=== PATIENT | female | born 1930 | race Caucasian/White ===

== ENCOUNTER 2019-08-03 09:50 | Emergency (ER) | payer BC, OTHER ==
[~2019-08-03] VITALS: Ht 157.5 cm; Wt 57.2 kg
[2019-08-03 10:03] VITALS: BP_SYST 163
--- NOTE | 2019-08-03 10:05 | NUR ---
Patient to ER bed 7 to gown for evaluation. Side rails up.
--- NOTE | 2019-08-03 10:06 | NUR ---
Mushtaq presented to ER with forehead laceration S/P fall. Patient A&ox4, ambulatory to ER, afebrile, skin pink and warm, laceration with controlled bleeding to forehead, wrist pain, pain 6/10, denies N/V/D. Patient states she was walking [place] when she missed the one step and "tumbled down" landing on right hand and head. Patien states she has hx of diabetes, hyperlipidemia, HTN.
--- NOTE | 2019-08-03 10:13 | NUR ---
ER Dr. TORRES at bedside examining patient.
[2019-08-03] MEDS ORDERED: DIPH-TET-PERTUS Vaccine 0.5 ML VIAL (ADACEL) I.M. ONE (10:45)
[2019-08-03] MEDS ORDERED: ACETAMINOPHEN 500 MG TABLET PO ONE (10:45)
--- NOTE | 2019-08-03 10:45 | NUR ---
Daughter of patient at bedside.
--- NOTE | 2019-08-03 10:58 | NUR ---
Patient to Radiology with staff via wheel chair
[2019-08-03 12:00] VITALS: BP_SYST 156
[2019-08-03] MEDS ORDERED: BACITRACIN 1 GM OINT TP ONE (12:00)
--- NOTE | 2019-08-03 12:00 | NUR ---
Patient given written and verbal discharge instructions and verbalizes understanding. ER MD discussed with patient the results and treatment provided. Patient in stable condition. ID arm band removed. No Rx given. Patient educated on pain management and to follow up with PMD. Pain Scale 2/10 tolerable for patient. Opportunity for questions provided and answered. Medication side effect fact sheet provided.
== END 2019-08-03 12:00 | disposition home or self-care (01) ==
LOC: SED 09:50
DX: S00.83XA Contusion of other part of head, initial encounter (principal); W18.09XA Striking against other object with subsequent fall, initial encounter; I10 Essential (primary) hypertension; M25.531 Pain in right wrist; E11.69 Type 2 diabetes mellitus with other specified complication; Z91.81 History of falling; Y93.01 Activity, walking, marching and hiking; Y92.89 Other specified places as the place of occurrence of the external cause; Y99.8 Other external cause status
CPT/HCPCS: 70450-TC; 70486-TC; 90715; 96372; 99284